=== PATIENT | female | born 1955 | race Caucasian/White ===

== ENCOUNTER 2018-03-17 08:01 | Inpatient (IN) ==
--- NOTE | 2018-03-16 21:45 | Discharge Summary ---
- NOTES TO OUTPATIENT PROVIDER Notes to Outpatient Provider: Patient diagnosed with pneumonia - see discharge medications. In addition, patient requires follow up CXR 7-10 days to ensure resolution Orders not resulted at time of discharge: Pending orders 03/17/18 01:00 XR post op reverse apex RT [XR] Routine Hemoglobin and Hematocrit [HEME] Routine Date of Encounter: 03/18/18 Time of Encounter: 12:34 - Discharge Diagnosis (1) Osteoarthritis of right shoulder Priority: Primary Status: Chronic Qualifiers: Osteoarthritis type: unspecified Qualified Code(s): M19.011 - Primary osteoarthritis, right shoulder (2) Rotator cuff arthropathy of left shoulder Priority: Primary Status: Chronic (3) Status post reverse total arthroplasty of left shoulder Priority: Primary Status: Acute (4) Diabetes mellitus Priority: Secondary Status: Chronic Qualifiers: Diabetes mellitus type: type 2 Diabetes mellitus shelter insulin use: with night custodian use Diabetes mellitus complication status: with unspecified complications Qualified Code(s): E11.8 - Type 2 diabetes mellitus with unspecified complications; Z79.4 - correction (current) use of insulin (5) HTN (hypertension) Priority: Secondary Status: Chronic Qualifiers: Hypertension type: essential hypertension Qualified Code(s): I10 - Essential (primary) hypertension (6) GERD (gastroesophageal reflux disease) Priority: Secondary Status: Chronic Qualifiers: Esophagitis presence: esophagitis presence not specified Qualified Code(s): K21.9 - Gastro-esophageal reflux disease without esophagitis (7) Chronic pain Priority: Secondary Status: Chronic Qualifiers: Chronic pain type: other chronic pain Qualified Code(s): G89.29 - Other chronic pain (8) Pneumonia Priority: Secondary Status: Suspected Comments: XR/XR chest 1V portable IMPRESSION: Volume loss in the left lung, associated with atelectasis and right upper lobe and perhaps superior segment right lower lobe. Since no comparison studies are available, superimposed pneumonia is considered as a differential possibility. RECOMMENDATION: The patient is symptomatic for pneumonia, follow-up PA and lateral chest is recommended in 7-10 days. D/ / Floyd Sims MD / Floyd Sims MD Qualifiers: Pneumonia type: due to unspecified organism Laterality: unspecified laterality Lung location: unspecified part of lung Qualified Code(s): J18.9 - Pneumonia, unspecified organism - Hospital Course Hospital course: Ms. Childress is a 63 year old female Date of procedure: 03/17/18 Pre-op diagnosis: Right shoulder cuff tear arthropathy Post-op diagnosis: same Procedure: Total Shoulder Replacment Reverse, right Patient seen at bedside. Patient relative at bedside. A&Ox3 Dressing and incision c/d/i Zipline intact No calf tenderness, erythema, or warmth. Neurovascularly intact b/l UE. Labwork and medications reviewed. Pain control: Adequate Participating in PT. All questions and concerns addressed. Educated on use of incentive spirometer, ambulation, and hydration. Patient educated on post-operative restrictions and care. Addressed: Patient diagnosed with pneumonia - possible aspiration. Speech eval - no diet restrictions. Hospitalist recommendations appreciated - discharged on PO antibiotics. Discharged: today with HH - Time Spent with Patient Total time spent providing and/or coordinating discharge services: - Discharge Medications Prescriptions: Albuterol Sulfate [Albuterol Inhaler] 1 puff IH Q6HR PRN #1 inhaler PRN Reason: Dyspnea Amoxicillin/Clavulanate [Augmentin] 500 mg PO BID 7 Days #14 tablet Levalbuterol [Xopenex] 1 puff IH Q4H PRN 30 Days #1 inhaler PRN Reason: Shortness Of Breath Home Medications: Acetaminophen [Tylenol] 1,000 mg PO Q6H PRN 03/17/18 [History] Aspirin [Lo-Dose Aspirin EC] 81 mg PO DAILY 03/17/18 [History] Cholecalciferol (D-3) [Vitamin D] 5,000 unit PO BID 03/17/18 [History] Docusate Sodium [Colace] 100 mg PO BID 5 Days #10 capsule 03/17/18 [Rx] Dulaglutide [Trulicity] 1.5 mg SQ MO 03/17/18 [History] Empagliflozin/Metformin HCl [Synjardy Xr 10-1,000 mg Tablet] 1 tab PO BID 03/17/18 [History] Furosemide [Lasix] 40 mg PO DAILY 03/17/18 [History] Ibuprofen 800 mg PO BID 03/17/18 [History] Insulin Glargine,Hum.rec.anlog [Lantus Solostar] 32 unit SQ QPM 03/17/18 [History] Montelukast [Singulair] 10 mg PO HS 03/17/18 [History] Multivitamin [One Daily Multivitamin] 1 tab PO DAILY 03/17/18 [History] Nebivolol [Bystolic] 5 mg PO DAILY 03/17/18 [History] Omeprazole [PriLOSEC] 40 mg PO DAILY 03/17/18 [History] OxyCODONE Immed Rel [Roxicodone 5 MG] 5 mg PO Q6HR PRN 7 Days #28 tablet 03/17/18 [Rx] Potassium Chloride 10 meq PO DAILY 03/17/18 [History] Pregabalin [Lyrica] 75 mg PO BID 03/17/18 [History] Ramipril 5 mg PO HS 03/17/18 [History] Albuterol Sulfate [Albuterol Inhaler] 1 puff IH Q6HR PRN #1 inhaler 03/18/18 [Rx] Amoxicillin/Clavulanate [Augmentin] 500 mg PO BID 7 Days #14 tablet 03/18/18 [Rx] Levalbuterol [Xopenex] 1 puff IH Q4H PRN 30 Days #1 inhaler 03/18/18 [Rx] Allergies/Adverse Reactions: Allergy/AdvReac Type Severity Reaction Status Date / Time adhesive tape AdvReac "TOOK SKIN Verified 03/17/18 09:16 OFF" latex AdvReac "HIVES, Verified 03/17/18 09:16 PEELS SKIN OFF, SHORTNESS OF BREATH" morphine AdvReac "STOPPED Verified 03/17/18 14:40 BREATHING" Date of admission: 03/17/18 Primary care physician: Margo Goldberg Discharging clinician: Jack Quintero Anticipated date of discharge: 03/18/18 - VTE Documentation of Mechanical Device: Venous foot pump, device - Patient Status Disposition: Home Health Service Condition: Fair Functional capacity at discharge: independent ambulation Overall status at discharge: patient is progressing back to baseline - Discharge Instructions Instructions: Pneumonia (DC), Joint Replacement Surgery (DC) Follow Up With: Portia Vergara, PAC [Physician Wall Insulation Sprayer] - Margo Goldberg DO [Primary Care Provider] - 03/26/18 1:00 pm Additional Instructions: Discharge Instructions: Total Shoulder Please call [facility] ([phone]), your Primary Care Physician, or report to the Emergency Room if you have any of the following symptoms: Nausea, vomiting, fever greater that 101.5, swelling, chest pain, shortness of breath, increased pain/redness/drainage/odor for your incision site, numbness/tingling, or any other concerning symptoms. ACTIVITY: Always keep your arm in the sling. Do not raise your arm away from your body. Do not use your arm to help with getting in or out of bed. No weight bearing permitted. Only perform those exercises given to you by your therapist. Incentive Spirometer 10 times an hour. MEDICATIONS: Upon discharge resume your home medications. Take all the medications as prescribed. Take a stool softener if taking narcotic pain medications. Stool softeners are only effective if you drink enough fluids. Drink 6-8 glass of water or fluids a day, unless this is not allowed for another health problem. Despite using stool softeners, if you haven't had a bowel movement in 3 days, please switch to a gentle laxative. Gentle laxatives are sold over the counter. You should have a bowel movement within 24 hours, if not call the office. You will be discharged from the hospital with a prescription for pain medication. You are encouraged to decrease the use of narcotic pain medication as tolerated. Should you require a refill, please call the office. [facility] prescribes narcotic pain medication for only 4-6 weeks after surgery. If you require pain medication beyond this time period, you may be referred to your Primary Care Physician or to the Pain Clinic for further evaluation. Plan ahead for refills on pain medication as many narcotics either need to be picked up at the office or mailed. It is best to call 48-72 hours in advance of needing a prescription refill so you don't run out of medication. To help control the post-operative pain, you may take NSAIDs (Aleve,Advil, Motrin, Ibuprofen, Naprosyn) or Tylenol as prescribed on the bottle in addition to the pain medication. WOUND CARE: Leave the dressing on for 7-10 days. You may change the dressing if it becomes saturated greater than 50%. Do not get the dressing wet at anytime. Wash your hands with antibacterial soap, rinse and dry prior to any wound care. If you have federico the visiting nurse or rehab facility can remove the stapes 10-14 days after surgery and place steri-strips across the wound. Leave the steri-strips in place until they fall off on their own. You may let water from the shower run on top of the steri-strips. If you do not have a visiting nurse or rehab facility, you will need to return to the office at 10-14 days for the federico to be removed. If you have itching or redness around the dressing call the office. FOLLOW-UP: Please follow up with your surgeon in the orthopedic clinic, as scheduled - Diet and Activity Activity: as per physical therapy Diet: advance to your usual diet
[2018-03-17] MEDS ORDERED: CeFAZolin Syr 2,000MG/20 ML 2,000 MG/20 ML SYRINGE IVPB ONE (08:15)
[2018-03-17] MEDS ORDERED: Ringers Solution, Lactated 1,000 ML IVC SCH ×2 (08:15→13:04)
--- NOTE | 2018-03-17 08:29 | Physician Discharge Referral ---
Home Health/Hosp Referral Info Transfer to: Home Health Attending Provider: Dr. Jack Quintero - Diagnosis (1) Osteoarthritis of right shoulder Priority: Primary Status: Chronic (2) Rotator cuff arthropathy of left shoulder Priority: Primary Status: Chronic (3) Status post reverse total arthroplasty of left shoulder Priority: Primary Status: Acute (4) Diabetes mellitus Priority: Secondary Status: Chronic (5) HTN (hypertension) Priority: Secondary Status: Chronic (6) GERD (gastroesophageal reflux disease) Priority: Secondary Status: Chronic (7) Chronic pain Priority: Secondary Status: Chronic - Respiratory Orders Smoking Cessation: Smoking cessation has been advised. For more information, call the [place] Tobacco Quit Line at 4-579-YILS-NOW. - Dressing/Wound Care Site: right shoulder Type of Dressing/Treatments w/Frequency: Opsite placed. Keep dressing intact until first follow up appointment. If greater than 50% saturated, notify office, remove dressing and place appropriate dressing back in place. Leave Zipline intact. Opsite dressing is water resistant, not water-proof. OK to shower, but do not get dressing wet. - Diet/Nutrition Diet/Nutrition Orders: Regular - Activity Activity Orders: Up ad trinity, Ambulate Activity: List: PT/OT per protocol. NWB to affected upper extremity. Follow Shoulder Precautions x 6 weeks. Stay in brace during activity and at night. Remove brace during exercises. ICE and elevate extremity frequently throughout the day. - Services Needed Following services are medically necessary services: Nursing, Home Health Aide, Physical Therapy, Occupational Therapy, Med Social Work - Transfer Medications Allergies/Adverse Reactions: Allergy/AdvReac Type Severity Reaction Status Date / Time No Known Allergies Allergy Verified 03/12/18 11:37 Certification: Further, I certify that my clinical findings support that this patient is homebound (i.e. absences from home require considerable and taxing effort and are for medical reasons or oriental orthodox services or infrequently or short duration when for other reasons) because: Homebound Reason: Post-surgery restriction and or conditions limit ability to leave home Attestation: My signature below is to certify that this patient is under my care and that I, or nurse practitioner, or a physician embroidery assistant working with me, has a [id number] encounter with this patient.
[2018-03-17] MEDS ORDERED: Famotidine 20 MG/2 ML VIAL IVP ONE (08:32)
[2018-03-17] MEDS ORDERED: Pregabalin 75 MG CAPSULE PO ONE (08:33)
[2018-03-17] MEDS ORDERED: Acetaminophen IV 1,000 MG/100 ML INFUS..BTL IVPB ONE (08:33)
--- NOTE | 2018-03-17 08:36 | Anesthesia Evaluation PreOp ---
Date of Encounter: 03/17/18 Time of Encounter: 08:34 - Past History Planned Operation: R-total shoulder REVERSE Cardiac History: CHF (associated with pneumonia x2 - 2017, and post- Laminectomy), HTN, Other (LVEF 55%, No SWMA) Pulmonary History: Asthma, COPD, Snore (+CPAP), MAURO Dx, Other SEO SPECIALIST History: Other (Peripheral Neuropathy Hip & Leg) Other Medical History: Diabetes Type II (IDDM) Anesthesia History: No Prior Anesthetic Complications, Past Anesthesia (Hysterectomy 2003, Gallbladder 2007, Hernia repair, Laminectomy 2004, BTL) Medications and Allergies Docusate Sodium [Colace] 100 mg PO BID 5 Days #10 capsule 03/17/18 [Rx] OxyCODONE Immed Rel [Roxicodone 5 MG] 5 mg PO Q6HR PRN 7 Days #28 tablet 03/17/18 [Rx] Allergy/AdvReac Type Severity Reaction Status Date / Time No Known Allergies Allergy Verified 03/12/18 11:37 - Meds/Allergy Pre-op Review Medications Reviewed: Yes Allergies Reviewed: Yes Beta Blockers on Current Med List: No Anesthesia Results - Labs Laboratory Tests 03/12/18 03/12/18 03/12/18 12:55 12:55 12:55 WBC 6.8 Hgb 13.7 Hct 44.4 Plt Count 201 PT 10.7 INR 1.0 APTT 31.9 Sodium 138 Potassium 4.3 Chloride 103 Carbon Dioxide 26 BUN 21 Creatinine 0.65 Est GFR (Non-Af Amer) > 60 Est Mean Plasma Glucose Hemoglobin A1c Latex Allergen IgE Ab Allergen Test Interp 03/12/18 03/12/18 12:55 12:55 WBC Hgb Hct Plt Count PT INR APTT Sodium Potassium Chloride Carbon Dioxide BUN Creatinine Est GFR (Non-Af Amer) Est Mean Plasma Glucose 160 Hemoglobin A1c 7.2 H Latex Allergen IgE Ab <0.10 Allergen Test Interp SEE NOTE - Imaging EKG: image reviewed (76bpm - SINUS RHYTHM Electronically Signed On 03-13-2018 19:21:08 EST by Nitin Milligan) Anesthesia Exam O2 Sat Height 1.52 m Height 1.52 m Weight 78.018 kg Weight 78.018 kg O2 Sat by Pulse Oximetry 98 Vital Signs Temp Pulse Resp BP Pulse Ox 98.4 F 86 18 137/68 98 03/17/18 08:25 03/17/18 08:25 03/17/18 08:25 03/17/18 08:25 03/17/18 08:25 - HEENT Pupil (Motor): Pupils equal, EOMI Mallampati: III Teeth: Normal Oral Opening: Greater than 3 - SEO SPECIALIST LOC: Oriented SEO SPECIALIST Motor: Normal RUE, Normal LUE, Normal RLE, Normal LLE, Normal Face SEO SPECIALIST Sensory: Normal: RUE, LUE, RLE, LLE, Face - Cardiac Rhythm: Regular Murmur: None - Pulmonary Breath Sounds: bilateral Clear Respiratory Effort: Symmetrical Anesthesia Assess/Plan ASA Score: 3 (HTN, DM, Peripheral neuropathy, GERD) Anes Supervising Prov Stmt: Pt seen/evaluated, R&B Discussed, questions answered and consent obtained. Nikunj Thomas MD
[2018-03-17] MEDS ORDERED: *HR* Propofol 200 MG/20 ML VIAL IVP ONE ×2 (08:43→09:42)
[2018-03-17] MEDS ORDERED: Lidocaine -MPF 2% 2 ML VIAL ONE ×2 (08:43→09:43)
[2018-03-17] MEDS ORDERED: Ondansetron 4 MG/2 ML VIAL ONE ×2 (08:43→11:00)
[2018-03-17] MEDS ORDERED: *HR* FentaNYL (PF) 100 MCG/2 ML VIAL ONE ×2 (08:43→09:42)
[2018-03-17] MEDS ORDERED: *HR* Midazolam HCl 2 MG/2 ML VIAL ONE ×2 (08:43→09:42)
[2018-03-17] MEDS ORDERED: Dexamethasone 4 MG/ML VIAL ONE ×2 (08:43→11:00)
[2018-03-17] MEDS ORDERED: *HR* Succinylcholine 200 MG/10 ML VIAL IVP ONE (08:43)
[2018-03-17] MEDS ORDERED: ROPIVACAINE HCL/PF 0.5% 30 ML VIAL ONE (09:01)
[2018-03-17] MEDS ORDERED: Bupivacaine/Clonidine Syringe 1 EACH SYRINGE ONE (09:01)
--- NOTE | 2018-03-17 09:05 | History & Physical Report ---
Date of Encounter: 03/17/18 Time of Encounter: 09:05 24 Hour HP Update - Instructions Instructions: If the History and Physical is less than 30 days old and was completed prior to A.M. admission and or procedure and has NOT been updated on calendar day of procedure please complete this update prior to performing procedure. - Update Patient reports changes in Medical Condition: No Changes in examination, assessment, or condition: No Changes in Medication: No Preop tests/diagnostics Reviewed: Yes Surgery Remains Indicated: Yes Consent for Planned Operative Procedure(s) Verified: Yes - Pre-Operative Checklist Preoperative Checklist Indicated: No Prophylactic Antibiotic Ordered: Yes Is VTE Prophylaxis Indicated?: Yes
[2018-03-17] MEDS ORDERED: Ethanol\\Acetic Acid\\Na Ace\\Ben 1,000 ML IRRIG.SOLN IR ONE (10:22)
--- NOTE | 2018-03-17 10:45 | Anesthesia Procedures ---
Date of Encounter: 03/17/18 Time of Encounter: 10:35 Procedures: Anesthesia - Nerve Block Procedure Date: 03/17/18 Time: 10:35 Allergies/Adv Reactions: Allergy/AdvReac Type Severity Reaction Status Date / Time adhesive tape AdvReac "TOOK SKIN Verified 03/17/18 09:16 OFF" latex AdvReac "HIVES, Verified 03/17/18 09:16 PEELS SKIN OFF, SHORTNESS OF BREATH" morphine AdvReac "STOPPED Verified 03/17/18 09:16 BREATHING" Pre-op Diagnosis: right shoulder arthritis Surgical Procedure: right total shoulder arthroplasty Checklist: Correct Patient Identifier, Correct procedure, History checked Correct side: Right Blood Thinner: No Monitor Applied: EKG, BP, Pulse Oximetry Supplemental Oxygen via Nasal Cannula (L/min): 2 Sedation: Versed (mg): 2 Sedation: Fentanyl (mcg): 50 Indication: Post Op Analgesia Pre-op Neuro Deficits: No Block Type: Supraclavicular Catheter placed: No Sterile Technique: Yes Ultrasound used: Yes Anatomy identified: Yes Visual spread of Local: Yes Nerve Stimulator Range: >0.4 - 0.6 mA Blood on Needle Aspiration: No Smooth Injection of Local: Yes Pain with Injection of Local: No Prep: Chlorhexadine Needle: 22 x 50 mm Stimuplex Local: 0.25% Bupivicaine w/Clonidine 20 mcg/cc, Ropivacaine (and decadron) Volume (cc): 50 Number of Attempts: 1 Complications: None/effective block Vitals: see nurses for vitals
[2018-03-17] MEDS ORDERED: Tranexamic Acid 1,000 MG/10 ML VIAL ONE (11:20)
--- NOTE | 2018-03-17 11:39 | Orthopedic Operative Note ---
Date of procedure: 03/17/18 Pre-op diagnosis: Right shoulder cuff tear arthropathy Post-op diagnosis: same Procedure: Procedure: Total Shoulder Replacment Reverse, right Estimated blood loss: 50 cc Hardware: Metal and polyethylene replacement: Arthrex 24, +4 , 25 mm screw glenoid baseplate, 4 locking 5.5 screw, 39+4 glenosphere, 8 apex humeral stem, poly insert 3 Exam Under anesthesia: Restricted motion all planes Procedural Notes: Grade 4 arthritic changes glenoid and humeral head, rotator cuff tear. Operative procedure: The patient was brought to the operating room and placed on the operating room table. After general anesthesia was administered the operative shoulder was examined. Findings were noted. The patient was placed in the modified beachchair position. All pressure points were padded appropriately. And the head was stabilized in the neutral position. The operative extremity was prepped and draped in the sterile surgical fashion. The patient received IV antibiotics prior to skin incision. A standard deltopectoral approach was made to the operative shoulder. Incision was made to the skin and subcutaneous tissue,hemo stasis was obtained with Bovie cautery. Using careful blunt dissection the cephalic vein was identified and mobilized medially. The deltopectoral interval was developed and the clavipectoral fascia was incised. The subscap was released off the lesser tuberosity and tagged with #2 FiberWire suture subscap was irreparable.. The humerus was dislocated patient noted to have tear supraspinatus tendon, and the humeral cut was made along the anatomic neck. She noted to have grade 4 arthritic changes glenoid and humeral head. Anterior and posterior Bankart retractors were placed to expose the glenoid. The glenoid guide was seated and the centering hole was made. It was reamed with the appropriate reamer. The 24, +4, 25 mm screw, baseplate was seated and secured with 4 locking 5.5 screw. The baseplate was irrigated and dried and the 39+4 Glenosphere was seated and secured with the Lo taper. The Lo taper was tested and found to be secure, glenosphere fixation was secondarily secured with the central screw. The humerus was redislocated and prepared with the diaphyseal reamers, followed by a broaching process up to the appropriate size 8 apex in the patient's anatomic version. The metaphyseal reamer was then utilized. Trial reduction found the shoulder to be relocatable. Trial components were removed and 8 apex stem was impacted in place in the patient's anatomic version. Trial reduction found the shoulder to be relocatable and stable with the appropriate 3. Trial component was removed and the real implant was seated and secured the shoulder was reduced. The shoulder had excellent motion and excellent stability and no evidence of dislocation. The deep tissue was irrigated with pulse irrigation. The PA close the shoulder. The deltopectoral interval was closed with a running #1 PDS suture, subcutaneous tissue was irrigated and closed with 0 PDS suture, the skin was closed with Dermabond. The patient was placed in a sterile dressing, abduction brace and extubated. The patient was then transferred to the recovery room in stable condition. Anesthesia: GETA Surgeon: Jack Quintero Was there an radiology physician assistant present: No Estimated blood loss (cc): 50 Condition: stable Disposition: PACU
--- NOTE | 2018-03-17 12:43 | Anesthesia Evaluation Post Op ---
Date of Encounter: 03/17/18 Time of Encounter: 12:41 - Vital Signs Vital Signs: Vital Signs/O2 Sat/Glucose, Most Current Temp Pulse Resp BP Pulse Ox 03/17/18 12:36 97.6 F 82 26 120/49 96 03/17/18 12:26 97.6 F 81 16 114/59 96 03/17/18 12:16 80 16 114/62 96 03/17/18 12:06 80 12 120/56 97 03/17/18 11:56 98.2 F 79 12 126/64 98 03/17/18 10:39 84 16 139/61 97 03/17/18 10:20 83 16 102/60 98 - Lungs Lungs: Clear Ascult./Percussion - Airway Airway: Non-obstructed - Cardiovascular Baseline Rhythm - Mental Status Mental Status: Alert & Oriented, Answers Appropriately - Pain Pain Scale: 0 (surgical shoulder NO pain, NON-surgical shoulder 6/10 pain - pt states it is arthritic and needs surgery too.) - Nausea Vomiting Nausea Vomiting: Not Present - Hydration Hydration: Ice chips - Discharge PostOp Status: Transfer Patient to floor Anes Supervising Prov Stmt: Pt seen/evaluated, VSS and has met criteria for discharge to floor. - MD William
[2018-03-17] MEDS ORDERED: Ketorolac 30 MG/ML VIAL ONE (12:47)
[2018-03-17] MEDS ORDERED: Naloxone 0.4 MG/ML INJ IVP PRN (13:04)
[2018-03-17] MEDS ORDERED: Temazepam 15 MG CAPSULE PO PRN (13:04)
[2018-03-17] MEDS ORDERED: *HR* OxyCODONE/APAP 5/325 TABLET PO PRN (13:04)
[2018-03-17] MEDS ORDERED: MOM Conc 10 ML UD.LIQ PO PRN (13:04)
[2018-03-17] MEDS ORDERED: (Dulaglutide [Trulicity] 1.5 MG) SQ SCH (13:04)
[2018-03-17] MEDS ORDERED: Dextrose Gel 15 GM/37.5 ML TUBE PO PRN ×2 (13:04)
[2018-03-17] MEDS ORDERED: D5% in Water 1,000 ML IVC PRN (13:04)
[2018-03-17] MEDS ORDERED: Ondansetron 4 MG/2 ML VIAL IVP PRN (13:04)
[2018-03-17] MEDS ORDERED: Sennosides 8.6 MG TABLET PO PRN (13:04)
[2018-03-17] MEDS ORDERED: *HR* Dextrose 50 % in Water (Syg) 50 ML SYRINGE IVP PRN (13:04)
[2018-03-17] MEDS ORDERED: traMADol 50 MG TABLET PO PRN (13:04)
[2018-03-17 13:07] LABS: Hematocrit 41.7 % (35.3-44.9)
[2018-03-17] MEDS ORDERED: Insulin LISPRO 300 UNITS/3 ML VIAL SQ SCH ×2 (16:30→21:00)
[2018-03-17] MEDS: *HR* Enoxaparin 30 MG/0.3 ML SYRINGE SQ SCH (17:19)
[2018-03-17] MEDS ORDERED: *HR* Enoxaparin 30 MG/0.3 ML SYRINGE SQ SCH (18:00)
--- NOTE | 2018-03-17 18:59 | Event Note ---
Date of Encounter: 03/17/18 Time of Encounter: 18:30 Notified by nursing of periodic episodes of tachypnea and hypotension. Patient also found to have elevated blood glucose. Given patient's surgery earlier today - EKG, tele and CXR ordered for evaluation of postop complication Patient seen at bedside in no acute distress. patient's family member noted at bedside Patient states she is not feeling unwell however has a headache and has been getting "funny feelings". She states that in the past when given steroids she has had palpiations, headache, and flushing of her face. She states she has been experiencing these symptoms since surgery. Right arm in slingshot as directed. Patient conversive, alert, and oriented. Sitting in chair. No gross neuro defect noted. CXR: concern for pneumonia No note of preop respiratory concerns - concern presently for aspiration Dr. Quintero notified Hospitalist consult Awaiting return call
[2018-03-17] MEDS: Pregabalin 75 MG CAPSULE PO SCH (19:49)
[2018-03-17] MEDS: Ibuprofen 800 MG TABLET PO SCH (19:49)
[2018-03-17] MEDS: EMPAGLIFLOZIN PO SCH (19:54)
[2018-03-17] MEDS: METFORMIN HCL PO SCH (19:54)
[2018-03-17] MEDS ORDERED: Insulin DETEMIR 100 UNIT/ML X5UNITS SQ SCH (21:00)
[2018-03-17] MEDS ORDERED: Lisinopril 20 MG TABLET PO SCH (21:00)
[2018-03-17] MEDS: *HR* OxyCODONE Immed Rel 5 MG TABLET PO PRN (21:50)
--- NOTE | 2018-03-18 00:44 | Internal Medicine Consult Note ---
Date of Encounter: 03/18/18 Time of Encounter: 23:30 - Assessment and plan (1) Pneumonia Current Visit: Yes Status: Acute Assessment and plan: Due to chest xray changes, and recent surgery, concern for aspiration pneumonia. Blood cultures and CBC pending. Will start Zosyn for potential aspiration pneumonia. Speech therapy eval ordered, will keep NPO until seen. Oxygen as needed to maintain saturations greater than 92%. Continue incentive spirometer. Qualifiers: Pneumonia type: due to unspecified organism Laterality: unspecified laterality Lung location: unspecified part of lung Qualified Code(s): J18.9 - Pneumonia, unspecified organism (2) Diabetes mellitus Current Visit: No Status: Chronic Assessment and plan: Accucheck q6 until diet resumed. Sliding scale insulin. Monitor blood sugars closely. Qualifiers: Diabetes mellitus type: type 2 Diabetes mellitus termite treater insulin use: with termite treater use Diabetes mellitus complication status: with unspecified complications Qualified Code(s): E11.8 - Type 2 diabetes mellitus with unspecified complications; Z79.4 - [facility] (current) use of insulin - Time Spent With Patient Total time spent is greater than 50% in coordination of care (as documented) at patient's floor/unit and/or counseling patient: Internal Medicine - CN: HPI - Data of Consult Requesting Physician: Jack Quintero MD - Consult Narrative History of present illness: Ms. Childress is a 63 year old female with past medical history significant for hypertension, CHF, diabetes, asthma, COPD, and GERD who is currently admitted after undergoing a right total shoulder replacement reverse for right shoulder cuff tear arthropathy on 03/17/18. Following surgery patient developed new onset tachypnea and elevated blood glucose for which the hospitalist group was consulted. Primary provider ordered chest xray which suggested superimposed pneumonia as a possibility and recommended follow up scan in 7-10 days. Patient continues to intermittently have shortness of breath and non productive cough while using incentive spirometer. Denies headache, chest pain, abdominal pain, fevers, or chills. Reports some improvement in shortness of breath with oxygen use but has no documented hypoxia and does not wear home oxygen. Denies any other alleviating or exacerbating factors. Has previous pneumonia around 2 years ago and she reports feeling similar at that time. Reports blood sugars have been averaging in 140's at home but do elevate when she is ill. Thank you for involving us in the care of your patient, we will continue to follow along. Past Med Surg Social Fam HX - Past Medical History Medical history: asthma, CHF, COPD, diabetes, GERD, hypertension, other Additional medical history: nerve pain in hip and leg Psychiatric history: anxiety - Past Surgical History Surgical History: herniorrhaphy, other Additional surgical history: gallbladder. back surgery - laminectomy - Social History Smoking Status: Never smoker Smokeless Tobacco Status: No Alcohol use: none Drug use: none Internal Medicine - CN: Meds Acetaminophen [Tylenol] 1,000 mg PO Q6H PRN 03/17/18 [History] Aspirin [Lo-Dose Aspirin EC] 81 mg PO DAILY 03/17/18 [History] Cholecalciferol (D-3) [Vitamin D] 5,000 unit PO BID 03/17/18 [History] Docusate Sodium [Colace] 100 mg PO BID 5 Days #10 capsule 03/17/18 [Rx] Dulaglutide [Trulicity] 1.5 mg SQ MO 03/17/18 [History] Empagliflozin/Metformin HCl [Synjardy Xr 10-1,000 mg Tablet] 1 tab PO BID 03/17/18 [History] Furosemide [Lasix] 40 mg PO DAILY 03/17/18 [History] Ibuprofen 800 mg PO BID 03/17/18 [History] Insulin Glargine,Hum.rec.anlog [Lantus Solostar] 32 unit SQ QPM 03/17/18 [History] Montelukast [Singulair] 10 mg PO HS 03/17/18 [History] Multivitamin [One Daily Multivitamin] 1 tab PO DAILY 03/17/18 [History] Nebivolol [Bystolic] 5 mg PO DAILY 03/17/18 [History] Omeprazole [PriLOSEC] 40 mg PO DAILY 03/17/18 [History] OxyCODONE Immed Rel [Roxicodone 5 MG] 5 mg PO Q6HR PRN 7 Days #28 tablet 03/17/18 [Rx] Potassium Chloride 10 meq PO DAILY 03/17/18 [History] Pregabalin [Lyrica] 75 mg PO BID 03/17/18 [History] Ramipril 5 mg PO HS 03/17/18 [History] Allergy/AdvReac Type Severity Reaction Status Date / Time adhesive tape AdvReac "TOOK SKIN Verified 03/17/18 09:16 OFF" latex AdvReac "HIVES, Verified 03/17/18 09:16 PEELS SKIN OFF, SHORTNESS OF BREATH" morphine AdvReac "STOPPED Verified 03/17/18 14:40 BREATHING" Hospitalist - CN: Exam - Constitutional Vitals: Temp Pulse Resp BP Pulse Ox 98.4 F 90 18 104/61 95 03/18/18 00:16 03/18/18 00:16 03/18/18 00:16 03/18/18 00:16 03/18/18 00:16 Exam: General: Alert and oriented. Skin:Normal color, no rash, no lesions. HEENT:Pupils equal, round and reactive. Cardiovascular:Chronic murmur noted. No JVD. Pulse regular. Lungs:Breath sounds decreased, no wheezes or crackles. Abdomen:Soft, non-tender, no rigidity. Extremities:No deformity, no edema or tenderness, no joint swelling or clubbing. Neurological:Normal cognition and motor skills. Pulses:Carotid and radial pulses normal +2. Rest of the physical exam is non contributory. Internal Medicine - CN: Reslt - Labs CBC & Chem 7: 03/17/18 12:31 Labs: Short CBC 03/17/18 Range/Units 12:31 Hgb 13.0 (11.5-15.4) g/dL Hct 41.7 (35.3-44.9) % - Impressions Impressions Shoulder X-Ray 03/17/18 01:00 IMPRESSION: Postoperative changes of reverse right shoulder arthroplasty, without hardware complication. D/ / Rishabh Joiner MD / Rishabh Joiner MD Interpreting Provider: Rishabh Joiner MD Chest X-Ray 03/17/18 17:20 IMPRESSION: Volume loss in the left lung, associated with atelectasis and right upper lobe and perhaps superior segment right lower lobe. Since no comparison studies are available, superimposed pneumonia is considered as a differential possibility. RECOMMENDATION: The patient is symptomatic for pneumonia, follow-up PA and lateral chest is recommended in 7-10 days. D/ / Floyd Sims MD / Floyd Sims MD Interpreting Provider: Floyd Sims MD Consult Discharge Plan - Plan Additional Instructions: Discharge Instructions: Total Shoulder Please call [facility] ([phone]), your Primary Care Physician, or report to the Emergency Room if you have any of the following symptoms: Nausea, vomiting, fever greater that 101.5, swelling, chest pain, shortness of breath, increased pain/redness/drainage/odor for your incision site, numbness/tingling, or any other concerning symptoms. ACTIVITY: Always keep your arm in the sling. Do not raise your arm away from your body. Do not use your arm to help with getting in or out of bed. No weight bearing permitted. Only perform those exercises given to you by your therapist. Incentive Spirometer 10 times an hour. MEDICATIONS: Upon discharge resume your home medications. Take all the medications as prescribed. Take a stool softener if taking narcotic pain me dications. Stool softeners are only effective if you drink enough fluids. Drink 6-8 glass of water or fluids a day, unless this is not allowed for another health problem. Despite using stool softeners, if you haven't had a bowel movement in 3 days, please switch to a gentle laxative. Gentle laxatives are sold over the counter. You should have a bowel movement within 24 hours, if not call the office. You will be discharged from the hospital with a prescription for pain medication. You are encouraged to decrease the use of narcotic pain medication as tolerated. Should you require a refill, please call the office. [facility] prescribes narcotic pain medication for only 4-6 weeks after surgery. If you require pain medication beyond this time period, you may be referred to your Primary Care Physician or to the Pain Clinic for further evaluation. Plan ahead for refills on pain medication as many narcotics either need to be picked up at the office or mailed. It is best to call 48-72 hours in advance of needing a prescription refill so you don't run out of medication. To help control the post-operative pain, you may take NSAIDs (Aleve,Advil, Motrin, Ibuprofen, Naprosyn) or Tylenol as prescribed on the bottle in addition to the pain medication. WOUND CARE: Leave the dressing on for 7-10 days. You may change the dressing if it becomes saturated greater than 50%. Do not get the dressing wet at anytime. Wash your hands with antibacterial soap, rinse and dry prior to any wound care. If you have federico the visiting nurse or rehab facility can remove the stapes 10-14 days after surgery and place steri-strips across the wound. Leave the steri-strips in place until they fall off on their own. You may let water from the shower run on top of the steri-strips. If you do not have a visiting nurse or rehab facility, you will need to return to the office at 10-14 days for the federico to be removed. If you have itching or redness around the dressing call the office. FOLLOW-UP: Please follow up with your surgeon in the orthopedic clinic, as scheduled Referrals: Margo Goldberg, [Primary Care Provider] -
[2018-03-18] MEDS ORDERED: Acetaminophen IV 1,000 MG/100 ML INFUS..BTL IVPB ONE (00:59)
[2018-03-18 01:34] LABS: Basophils % 0.1 %; Hematocrit 40.3 % (35.3-44.9); Hemoglobin 12.9 g/dL (11.5-15.4); Immature Granulocytes % 0.6 % (0-4); Lymphocytes # 1.5 K/mcL (0.6-4.6); Lymphocytes % 11.7 %; Mean Corpuscular Hemoglobin 28.3 pg (28.0-33.3); Mean Corpuscular Volume 88.4 fL (83.0-100.0); Mean Platelet Volume 12.1 fL (9.4-12.4); Monocytes # 0.7 K/mcL (0.0-1.3); Monocytes % 5.8 %; Neutrophils # 10.3 K/mcL (1.6-8.9); Platelet Count 217 K/mcL (140-400); Red Blood Count 4.56 M/mcL (3.82-4.97); Red Cell Distribution Width 14.3 % (11.5-14.5); Segmented Neutrophils % 81.8 %
[2018-03-18 01:53] LABS: BUN/Creatinine Ratio 32 (6-26); Blood Urea Nitrogen 23 mg/dL (8-23); Calcium 10.1 mg/dL (8.6-10.3); Carbon Dioxide 23 mEq/L (23-29); Chloride 103 mEq/L (98-107); Glucose 182 mg/dL (70-105); Osmolality,Calculated 296 (280-300); Potassium 4.1 mEq/L (3.5-5.1); Sodium 139 mEq/L (136-145); eGFR For Non-African Americans > 60 (> 60)
[2018-03-18] MEDS ORDERED: OXYCODONE Oral CONC 10 MG/0.5 ML ORAL.SYG SL ONE (02:21)
[2018-03-18] MEDS: *HR* Enoxaparin 30 MG/0.3 ML SYRINGE SQ SCH (05:38)
[2018-03-18] MEDS ORDERED: Piperacillin/Tazobactam 3.375 GM in 0.9 % Sodium Chloride Mini Bag 100 ML IVPB SCH ×2 (06:00→16:00)
[2018-03-18] MEDS ORDERED: Insulin LISPRO 300 UNITS/3 ML VIAL SQ SCH ×3 (06:00→21:00)
--- NOTE | 2018-03-18 06:54 | Orthopedics Progress Note ---
Date of Encounter: 03/18/18 Time of Encounter: 06:53 Subjective Interval history: Patient was seen this morning doing well without complaints. Afebrile vital signs stable. Operative extremity: Neurovascularly intact Dressing clean dry and intact Calves nontender Assessment and plan: Continue with postoperative care Patient without any respiratory distress plan for discharge today if cleared by medical team Objective Vital signs: Vital Signs Temp Pulse Resp BP Pulse Ox 03/18/18 03:11 98.7 F 93 18 97/59 96 03/18/18 00:16 98.4 F 90 18 104/61 95 03/17/18 18:58 99.0 F 87 20 124/62 92 03/17/18 17:32 97.7 F 86 24 101/58 93 03/17/18 16:27 98.0 F 88 18 117/67 92 03/17/18 16:00 87 20 111/64 93 03/17/18 15:00 83 17 114/66 97 03/17/18 14:00 83 16 102/63 95 03/17/18 13:30 86 17 120/59 94 03/17/18 13:00 98.5 F 83 19 112/67 95 03/17/18 12:36 97.6 F 82 26 120/49 96 03/17/18 12:26 97.6 F 81 16 114/59 96 03/17/18 12:16 80 16 114/62 96 03/17/18 12:06 80 12 120/56 97 03/17/18 11:56 98.2 F 79 12 126/64 98 03/17/18 10:39 84 16 139/61 97 03/17/18 10:20 83 16 102/60 98 03/17/18 08:25 98.4 F 86 18 137/68 98 Intake and Output 03/17/18 03/17/18 03/18/18 15:59 23:59 07:59 Intake Total 100 / 100 200 / 200 Output Total 200 / 200 300 / 300 Balance -200 / -200 -200 / -200 200 / 200 Intake: IV Fluids 100 / 100 200 / 200 Ofirmev 1,000 mg/100 ml 1,000 100 / 100 mg In 100 ml @ 400 mls/hr IVPB ONCE ONE Rx#:[id number] Ancef 2,000 MG In 0.9 % Sodium 100 / 100 100 / 100 Chloride 100 ML @ 200 mls/hr IVPB Q8HR STEFANIE Rx#:[id number] Output: Urine 300 / 300 Estimated Blood Loss 200 / 200 Other: # Voids 2 Weight 78.018 kg 84.7 kg Blood Glucose* 139 275 162 Patient Weight 03/18/18 23:59 Weight 84.7 kg - Labs CBC & BMP: 03/18/18 01:19 03/18/18 01:19 Labs: Abnormal lab results WBC 12.6 K/mcL (4.3-11.1) H D 03/18/18 01:19 Neutrophils # 10.3 K/mcL (1.6-8.9) H 03/18/18 01:19 BUN/Creatinine Ratio 32 (6-26) H 03/18/18 01:19 Glucose 182 mg/dL (70-105) H 03/18/18 01:19 POC Glucose 149 mg/dL (70-99) H 03/17/18 08:17 Consult Discharge Plan - Plan Additional Instructions: Discharge Instructions: Total Shoulder Please call [facility] ([phone]), your Primary Care Physician, or report to the Emergency Room if you have any of the following symptoms: Nausea, vomiting, fever greater that 101.5, swelling, chest pain, shortness of breath, increased pain/redness/drainage/odor for your incision site, numbness/tingling, or any other concerning symptoms. ACTIVITY: Always keep your arm in the sling. Do not raise your arm away from your body. Do not use your arm to help with getting in or out of bed. No weight bearing permitted. Only perform those exercises given to you by your therapist. Incentive Spirometer 10 times an hour. MEDICATIONS: Upon discharge resume your home medications. Take all the medications as prescribed. Take a stool softener if taking narcotic pain medications. Stool softeners are only effective if you drink enough fluids. Drink 6-8 glass of water or fluids a day, unless this is not allowed for another health problem. Despite using stool softeners, if you haven't had a bowel movement in 3 days, please switch to a gentle laxative. Gentle laxatives are sold over the counter. You should have a bowel movement within 24 hours, if not call the office. You will be discharged from the hospital with a prescription for pain medication. You are encouraged to decrease the use of narcotic pain medication as tolerated. Should you require a refill, please call the office. [facility] prescribes narcotic pain medication for only 4-6 weeks after surgery. If you require pain medication beyond this time period, you may be referred to your Primary Care Physician or to the Pain Clinic for further evaluation. Plan ahead for refills on pain medication as many narcotics either need to be picked up at the office or mailed. It is best to call 48-72 hours in advance of needing a prescription refill so you don't run out of medication. To help control the post-operative pain, you may take NSAIDs (Aleve,Advil, Motrin, Ibuprofen, Naprosyn) or Tylenol as prescribed on the bottle in addition to the pain medication. WOUND CARE: Leave the dressing on for 7-10 days. You may change the dressing if it becomes saturated greater than 50%. Do not get the dressing wet at anytime. Wash your hands with antibacterial soap, rinse and dry prior to any wound care. If you have federico the visiting nurse or rehab facility can remove the stapes 10-14 days after surgery and [address] steri-strips across the wound. Leave the steri-strips in place until they fall off on their own. You may let water from the shower run on top of the steri-strips. If you do not have a visiting nurse or rehab facility, you will need to return to the office at 10-14 days for the federico to be removed. If you have itching or redness around the dressing call the office. FOLLOW-UP: Please follow up with your surgeon in the orthopedic clinic, as scheduled Referrals: Margo Goldberg, [Primary Care Provider] -
[2018-03-18] MEDS: Pregabalin 75 MG CAPSULE PO SCH (08:40)
[2018-03-18] MEDS: Ibuprofen 800 MG TABLET PO SCH (08:41)
[2018-03-18] MEDS: EMPAGLIFLOZIN PO SCH (08:42)
[2018-03-18] MEDS: METFORMIN HCL PO SCH (08:42)
[2018-03-18] MEDS ORDERED: OXYCODONE Oral CONC 10 MG/0.5 ML ORAL.SYG SL PRN (08:47)
[2018-03-18] MEDS ORDERED: Acetaminophen IV 1,000 MG/100 ML INFUS..BTL IVPB PRN (08:48)
[2018-03-18] MEDS ORDERED: Multivit/Ca/Min/Fe/FA 1 TAB TABLET PO SCH (09:00)
[2018-03-18] MEDS ORDERED: Aspirin Enteric Coated 81 MG Tablet PO SCH (09:00)
[2018-03-18] MEDS ORDERED: Furosemide 40 MG TABLET PO SCH (09:00)
[2018-03-18] MEDS ORDERED: Cholecalciferol (D-3) 1,000 UNIT TABLET PO SCH (09:00)
--- NOTE | 2018-03-18 10:46 | Internal Med Progress Note ---
Hospitalist Progress Note - Encounter Date of Encounter: 03/18/18 Time of Encounter: 10:42 - Subjective Interval History: patient was seen and examined at bedside. as per patient her WILLIAM has been running on the lower side at home and at the PCP office her medications were adjusted and dosage reduced last year however at home her SBP runs in the 100s she is on ramipril 5 mg lasix 40 mg daily and nebivolol 5 mg. currently he denies fever, chills, cough, CP SOB or palpitations. she has no complaints and is inquiring about discharge - Exam Vitals: Temp Pulse Resp BP Pulse Ox 97.6 F 86 16 105/64 97 03/18/18 07:42 03/18/18 07:42 03/18/18 07:42 03/18/18 07:42 03/18/18 08:54 Exam: General: Alert and oriented. obese, speaks in full sentences Skin:Normal color, no rash, no lesions. HEENT:Pupils equal, round and reactive. Cardiovascular:Chronic murmur noted. No JVD. Pulse regular. Lungs:Breath sounds decreased, no wheezes or crackles. Abdomen:Soft, non-tender, no rigidity. Extremities:No deformity, no edema or tenderness, no joint swelling or clubbing. Neurological:Normal cognition and motor skills. Pulses:Carotid and radial pulses normal +2. Rest of the physical exam is non contributory. - Assessment and Plan (1) Pneumonia Current Visit: Yes Status: Acute Assessment and Plan: Due to chest xray changes, and recent surgery, concern for aspiration pneumonia. PIER HAND HELPER performed and she had no difficulty CBC with mild leukocytosis currently not tachycardic, SBP in sherron 100s ( she reports her baseline at home) Blood cultures NGTD Will start Zosyn for potential aspiration pneumonia- consider switching to augmentin on discharge to complete a 7 day course xopenex Q4H PRN for SOB Oxygen as needed to maintain saturations greater than 92%. Continue incentive spirometer. will need follow up xray as OP to ensure resolution of CXR findings (2) Diabetes mellitus Current Visit: No Status: Chronic Assessment and Plan: Accucheck q6 until diet resumed. Sliding scale insulin. Monitor blood sugars closely. (3) HTN (hypertension) Current Visit: No Status: Chronic Assessment and Plan: patient on lasix 40 mg and ramipiril 5mg and nebivolol 5 mg daily for HTN as per patient blood pressure has been running low at PCP office and at home recommend decreasing ramipril dosage to 2.5 mg daily she is also on pain medications which can cause decrease in BP recommend decreasing lasix dosage to 20 mg daily for her to have PCP follow up with BP log to have BP medications adjusted as per BP log at home - appointment should be made for next week continue to monitor BP (4) Obesity (BMI 35.0-39.9 without comorbidity) Current Visit: Yes Status: Acute Assessment and Plan: was counseled - Time Spent with Patient Total time spent is greater than 50% in coordination of care (as documented) at patient's floor/unit and/or counseling patient: Internal Medicine: Result - Labs CBC & Chem 7: 03/18/18 01:19 03/18/18 01:19 Labs: Short CBC 03/17/18 03/18/18 Range/Units 12:31 01:19 WBC 12.6 H D (4.3-11.1) K/mcL Hgb 13.0 12.9 (11.5-15.4) g/dL Hct 41.7 40.3 (35.3-44.9) % Plt Count 217 (140-400) K/mcL Neutrophils # 10.3 H (1.6-8.9) K/mcL BMP 03/18/18 01:19 Sodium 139 Potassium 4.1 Chloride 103 Carbon Dioxide 23 BUN 23 Creatinine 0.72 Glucose 182 H Calcium 10.1 - Impressions Impressions Shoulder X-Ray 03/17/18 01:00 IMPRESSION: Postoperative changes of reverse right shoulder arthroplasty, without hardware complication. D/ / Rishabh Joiner MD / Rishabh Joiner MD Interpreting Provider: Rishabh Joiner MD Chest X-Ray 03/17/18 17:20 IMPRESSION: Volume loss in the left lung, associated with atelectasis and right upper lobe and perhaps superior segment right lower lobe. Since no comparison studies are available, superimposed pneumonia is considered as a differential possibility. RECOMMENDATION: The patient is symptomatic for pneumonia, follow-up PA and lateral chest is recommended in 7-10 days. D/ / Floyd Sims MD / Floyd Sims MD Interpreting Provider: Floyd Sims MD Consult Discharge Plan - Plan Additional Instructions: Discharge Instructions: Total Shoulder Please call [facility] ([phone]), your Primary Care Physician, or report to the Emergency Room if you have any of the following symptoms: Nausea, vomiting, fever greater that 101.5, swelling, chest pain, shortness of breath, increased pain/redness/drainage/odor for your incision site, numbness/tingling, or any other concerning symptoms. ACTIVITY: Always keep your arm in the sling. Do not raise your arm away from your body. Do not use your arm to help with getting in or out of bed. No weight bearing permitted. Only perform those exercises given to you by your therapist. Incentive Spirometer 10 times an hour. MEDICATIONS: Upon discharge resume your home medications. Take all the medications as prescribed. Take a stool softener if taking narcotic pain medications. Stool softeners are only effective if you drink enough fluids. Drink 6-8 glass of water or fluids a day, unless this is not allowed for another health problem. Despite using stool softeners, if you haven't had a bowel movement in 3 days, please switch to a gentle laxative. Gentle laxatives are sold over the counter. You should have a bowel movement within 24 hours, if not call the office. You will be discharged from the hospital with a prescription for pain medication. You are encouraged to decrease the use of narcotic pain medication as tolerated. Should you require a refill, please call the office. [facility] prescribes narcotic pain medication for only 4-6 weeks after surgery. If you require pain medication beyond this time period, you may be referred to your Primary Care Physician or to the Pain Clinic for further evaluation. Plan ahead for refills on pain medication as many narcotics either need to be picked up at the office or mailed. It is best to call 48-72 hours in advance of needing a prescription refill so you don't run out of medication. To help control the post-operative pain, you may take NSAIDs (Aleve,Advil, Motrin, Ibuprofen, Naprosyn) or Tylenol as prescribed on the bottle in addition to the pain medication. WOUND CARE: Leave the dressing on for 7-10 days. You may change the dressing if it becomes saturated greater than 50%. Do not get the dressing wet at anytime. Wash your hands with antibacterial soap, rinse and dry prior to any wound care. If you have federico the visiting nurse or rehab facility can remove the stapes 10-14 days after surgery and [address] steri-strips across the wound. Leave the steri-strips in place until they fall off on their own. You may let water from the shower run on top of the steri-strips. If you do not have a visiting nurse or rehab facility, you will need to return to the office at 10-14 days for the federico to be removed. If you have itching or redness around the dressing call the office. FOLLOW-UP: Please follow up with your surgeon in the orthopedic clinic, as scheduled Referrals: Margo Goldberg DO [Primary Care Provider] - (1) Pneumonia Qualifiers: Pneumonia type: due to unspecified organism Laterality: right Lung location: lower lobe of lung Qualified Code(s): J18.1 - Lobar pneumonia, unspecified organism (2) Diabetes mellitus Qualifiers: Diabetes mellitus type: type 2 Diabetes mellitus snf insulin use: with vermin exterminator use Diabetes mellitus complication status: with unspecified c omplications Qualified Code(s): E11.8 - Type 2 diabetes mellitus with unsp ecified complications; Z79.4 - buttermaker helper (current) use of insulin (3) HTN (hypertension) Qualifiers: Hypertension type: essential hypertension Qualified Code(s): I10 - Essential (primary) hypertension
--- NOTE | 2018-03-18 12:46 | Electrocardiograph Report ---
[address] [address] Test Date: 2018-03-17 Pat Name: Ann Childress Department: 114 Room: [facility] Gender: F [employer] Mixer: GERDA : [id number] Requested By: Portia Vergara Order Number: [id number] Reading MD: Diamante Jeffries Measurements Intervals [place] Rate: 87 P: 32 WV: 169 QRS: 12 QRSD: 90 T: 41 QT: 364 QTc: 409 Interpretive Statements SINUS RHYTHM POSSIBLE LEFT ATRIAL ENLARGEMENT Electronically Signed On 03-18-2018 12:44:53 EST by Diamante Jeffries
[2018-03-18] MEDS: *HR* OxyCODONE Immed Rel 5 MG TABLET PO PRN (13:34)
[2018-03-18 15:46] VITALS: BP 115/72
== END 2018-03-18 15:47 | disposition home health service (06) | DRG 483 ==
LOC: SAMDAY 08:01 → 3NENU 12:48
PROVIDERS: ADMIT Orthopaedic Surgery; ATTEND Orthopaedic Surgery